=== PATIENT | male | born 1950 | race Caucasian/White ===

== ENCOUNTER 2017-04-29 04:54 | Day surgery (SDC) | payer OTHER ==
[2017-04-20 16:07] LABS: BASOPHIL % 0.1 % (0.0-0.2); EOSINOPHIL # 0.1 10^3/uL (0.0-0.2); EOSINOPHIL % 0.8 % (0.0-5.0); HEMOGLOBIN 13.5 g/dL (13.9-16.3); LYMPHOCYTES # 1.9 10^3/uL (1.0-4.8); LYMPHOCYTES % 21.6 % (24.0-44.0); MEAN CELL HGB CONCENTRATION 33.7 g/dL (33-37); MEAN CORP VOLUME 92.2 fL (78-100); MEAN PLATELET VOLUME 9.6 fL (7.8-11.0); MONOCYTES # 0.7 10^3/uL (0.3-0.8); MONOCYTES % 7.8 % (5.0-12.0); NEUTROPHIL # 6.2 10^3/uL (1.8-7.7); NEUTROPHILS % 69.5 % (41.0-85.0); RED CELL DISTRIBUTION WIDTH 12.9 % (11.5-14.5); WHITE BLOOD CELL 8.9 10^3/uL (4.5-11.0)
[2017-04-20 16:26] LABS: CALCIUM 8.8 mg/dL (8.4-10.5)
[2017-04-20 16:50] VITALS: BP 148/77
[2017-04-29] VITALS (11 sets, daily range): BP systolic 119–149; BP diastolic 63–95
[~2017-04-29] VITALS: Ht 167.6 cm; Wt 68.0 kg
[~2017-04-29 04:54] MED LIST: LACTATED RINGERS 1,000 ML IV SCH; LOVENOX SQ ONE; MEFOXIN 1 GM in NS 100ML 100 ML IV ONE; OMEP40CA6 PO; VALS80TA3 PO
[2017-04-29] MEDS ORDERED: NS 100ML 100 ML IV ONE (05:06)
[2017-04-29] MEDS ORDERED: LOVENOX SQ ONE ×2 (05:07→06:00)
[2017-04-29] MEDS ORDERED: LACTATED RINGERS 1,000 ML ONE ×2 (05:07→10:34)
[2017-04-29] MEDS ORDERED: MEFOXIN ONE (05:07)
[2017-04-29] MEDS ORDERED: LACTATED RINGERS 1,000 ML IV SCH (06:00)
[2017-04-29] MEDS ORDERED: MEFOXIN 1 GM in NS 100ML 100 ML IV ONE (06:00)
[2017-04-29] MEDS ORDERED: SODIUM CHLORIDE IR ONE (07:23)
[2017-04-29] MEDS ORDERED: SENSORCAINE-MPF 0.5% VIAL ONE (07:23)
[2017-04-29] MEDS ORDERED: TORADOL ONE (08:05)
[2017-04-29] MEDS ORDERED: VERSED ONE (08:05)
[2017-04-29] MEDS ORDERED: DECADRON ONE (08:05)
[2017-04-29] MEDS ORDERED: ZOFRAN ONE (08:05)
[2017-04-29] MEDS ORDERED: DIPRIVAN IV ONE (08:06)
[2017-04-29] MEDS ORDERED: LIDOCAINE 2% VIAL ONE (08:06)
[2017-04-29] MEDS ORDERED: SUBLIMAZE ONE (08:06)
[2017-04-29] MEDS ORDERED: PEPCID IV ONE (08:06)
[2017-04-29] MEDS ORDERED: DILAUDID ONE (08:07)
[2017-04-29] MEDS ORDERED: ERYTHROMYCIN BOTH EYES ONE (09:00)
[2017-04-29] MEDS ORDERED: GENTAMICIN SULFATE ONE (09:33)
[2017-04-29] MEDS ORDERED: PHENERGAN IV PRN (10:30)
[2017-04-29] MEDS ORDERED: NORCO 5 MG PO PRN (10:30)
[2017-04-29] MEDS ORDERED: MORPHINE SULFATE IV PRN (10:30)
[2017-04-29] MEDS ORDERED: ZOFRAN IV PRN (10:30)
[2017-04-29] MEDS ORDERED: EPHEDRINE SULFATE ONE (10:35)
[2017-04-29] MEDS ORDERED: NORCO 5 MG PO ONE (11:39)
--- NOTE | 2017-04-29 20:57 | OPH ---
DATE OF SURGERY: 04/29/2017 PREOPERATIVE DIAGNOSIS: Right inguinal hernia. POSTOPERATIVE DIAGNOSIS: Recurrent right inguinal hernia that is direct. SURGEON: Quan Huber DO [employer] IRRIGATOR: OR staff. ANESTHESIA: General by Fay Calderon CRNA plus local used on the field. PROCEDURES PERFORMED: 1. Open inguinal hernia repair. 2. Removal of right-sided cord lipoma. SPECIMENS: 1. Direct right inguinal hernia sac to path. 2. Cord lipoma to path. ESTIMATED BLOOD LOSS: 19 mL. COUNTS: At completion of the case, the counts were correct per OR staff. DESCRIPTION OF PROCEDURE: The patient is a 67-year-old male, known from previous evaluation. Prior to procedure, informed consent was obtained. At time of procedure, he was taken to the operative suite and placed in supine position. After timeout was completed, general anesthesia was obtained, he was clipped, prepped and draped in normal fashion. Local was used to anesthetize the right inguinal region. There was a transverse scar noted from a previous surgery. However, diagonal scar was made in the right groin and electrocautery was used to control the bleeding, dissect down to the level, there was noticed to be some significant scar tissue superficial to the external oblique fascia. After the external oblique was exposed it was incised and extended laterally and then medially to the ring from the surrounding tissues. There was scarring in the inguinal floor consistent with previous hernia repair. Once the cord structures were isolated the direct space was inspected, there was noted to be two separate small areas of apparent herniation. Hernia sac on the lateral aspect was taken out at its base, the contents were divided using electrocautery, was reduced. The medial aspect was noted to be near the attachment of the fascia and pubic tubercle. Subsequently, both repaired with a running 0 Vicryl suture. After the defect was repaired, the wound was irrigated. The inguinal cord was inspected, there was noted to be cord lipoma that is taken down to its base where it was clamped, divided and ligated. With repair intact, the floor was inspected. Patch was brought on and cut to fit in the inguinal floor, secured medially to pubic tubercle, plug was placed in the defect near the cord lipoma, secured with 0 Vicryl sutures and the patch was overlaid and was attached laterally to the muscle fibers, superiorly to the muscle fibers and inferiorly to the shelving portion of the inguinal ligament. The wound bed was irrigated. Any bleeding identified was controlled with electrocautery and closure was pursued. Deane drain that was previously used to retain the spermatic cord structures was removed. Cord structures were intact. The inguinal floor was intact. External oblique fascia was closed with a running 2-0 Vicryl suture. Rani's fascia was closed with interrupted 2-0 Vicryl, subcutaneous closed with 3-0 Vicryl, skin was closed with 4-0 Monocryl in a running subcutaneous fashion. The patient was cleaned. Steri-Strips were applied. Dressings applied. Drapes removed. The patient tolerated these procedures well. There were no acute complications noted. Quan Huber DO DR: Kera JOB# [id number] CC: Jaswinder SCHWARTZ
== END 2017-04-29 11:58 | disposition home or self-care (01) | DRG 395 ==
LOC: SDC 04:54
PROVIDERS: ATTEND Surgery
DX: K40.90 Unilateral inguinal hernia, without obstruction or gangrene, not specified as recurrent (principal); D17.6 Benign lipomatous neoplasm of spermatic cord; I10 Essential (primary) hypertension; N40.0 Benign prostatic hyperplasia without lower urinary tract symptoms; K21.9 Gastro-esophageal reflux disease without esophagitis; M19.90 Unspecified osteoarthritis, unspecified site; Z98.890 Other specified postprocedural states; Z79.899 Other long term (current) drug therapy
CPT/HCPCS: 36415; 49505; 80053; 85025; 85610; 85730; 93005; C1781; J1100; J1170; J1580; J1650; J1885; J2001; J2250; J2405; J3010; J3490 ×4; J7030; J7050; J7120 ×2; J0694

== ENCOUNTER → 2020-04-22 | Outpatient (CLI) | payer MEDICARE ==
[~2020-04-22] MED LIST changes: -LACTATED RINGERS 1,000 ML IV SCH; -LOVENOX SQ ONE; -MEFOXIN 1 GM in NS 100ML 100 ML IV ONE; +OMEP40CA41 PO; -OMEP40CA6 PO
--- NOTE | 2020-04-22 16:44 | DIREP ---
This report includes an Addendum and supersedes previous reports for this exam. PROCEDURE:MRI SPINE LUMBAR W/O COMPARISON:None. INDICATIONS:THORACOLUMBAR SPONDYLOTHESES TECHNIQUE:A comprehensive examination was performed utilizing a variety of imaging planes and imaging parameters to optimize visualization of suspected pathology. Images were performed without intravenous gadolinium contrast. FINDINGS: ALIGNMENT:L4 anterolisthesis measures 5 mm.. VERTEBRA:No fracture, pars defect, or osseous lesion. CORD/CAUDA EQUINA:Normal size, contour, and signal intensity. PARASPINAL AREA:Large T2 hyperintense lesions in the right kidney are incompletely imaged. OTHER:None. LUMBAR DISC LEVELS T12-L1:No significant disc/facet abnormality, spinal stenosis, or foraminal stenosis. L1-L2:Small dorsal bulge. No significant foraminal or spinal stenosis. L2-L3:Small dorsal bulge. Minimal foraminal stenosis and mild flattening of the thecal sac. L3-L4:Small dorsal bulge. Minimal foraminal stenosis greater on the left. Mild flattening of the thecal sac. Small facet osteophytes. L4-L5:Small facet osteophytes. Bilateral L4 pars defects. L4 anterolisthesis. Moderate disc space height loss. Small dorsal bulge appears to contact the exiting bilateral L4 nerve roots. Mild flattening of the thecal sac. L5-S1:Small bilateral facet osteophytes. Severe disc space height loss. Small dorsal bulge appears to contact the exiting right L5 nerve root. Mild left and moderate right foraminal stenosis. Mild canal stenosis. CONCLUSION: 1. L4 spondylolysis with grade 1 spondylolisthesis. 2. L4-5 degenerative disc disease dorsal bulge contacts the bilateral lateral L4 nerve roots. 3. L5-S1 dorsal bulge appears to contact the exiting right L5 nerve root. 4. Additional degenerative changes as detailed above. Dictated by: Maciel Myers M.D. on 04/22/2020 at 04:36 PM NDUM: 5. T2 hyperintense lesions in the right kidney, recommend ultrasound characterization. Dictated by: Maciel Myers M.D. on 04/22/2020 at 04:56 PM
== END | disposition home or self-care (01) ==
LOC: RAD 12:58
PROVIDERS: ATTEND Family Medicine
DX: M43.16 Spondylolisthesis, lumbar region (principal); M47.816 Spondylosis without myelopathy or radiculopathy, lumbar region; M48.07 Spinal stenosis, lumbosacral region; M25.78 Osteophyte, vertebrae; M43.15 Spondylolisthesis, thoracolumbar region
CPT/HCPCS: 72148